=== PATIENT | male | born 1990 | race Caucasian/White ===

== ENCOUNTER 2017-06-24 13:44 | Emergency (ER) | payer BC ==
[~2017-06-24] VITALS: Ht 190.5 cm; Wt 72.7 kg
[~2017-06-24 13:44] MED LIST: VALP250 PO
[2017-06-24 14:00] VITALS: BP 139/90; PULSE 121; RESP 20; TEMP 100.3; O2SAT 99
[2017-06-24] MEDS ORDERED: SODIUM CHLOR 0.9% 1000 ML INJ 1,000 ML IV ONE (14:23)
--- NOTE | 2017-06-24 14:29 | PD ---
HPI Chief Complaint: Seizure Time Seen by Provider: 14:22 Travel History International Travel<30 days: No Contact w/Intl Traveler<30days: No Traveled to known affect area: No History of Present Illness HPI [id number] with a history of seizures presents to the emergency department via [facility] with seizures that occurred just prior to arrival. Says he had 2 seizures within 30 minutes. He says his last seizure was in 2011. He states compliance with his medications and follows neurology every 6 months. Says he missed his last appt in january. There were no witnesses. States his seizure are of grand mal nature and usually has a postictal period. He does not know why he had a seizure today. He thinks he bit his tongue but denies urinary incontinence. He says he drank 'a little' for New Year's but denies chronic or heavy alcohol use. Denies illicit drug use or any other ingestions. Patient states he has had a mild upper respiratory like infection and felt feverish the last 2 days. Denies shortness of breath or chest pain. He denies significant pain or headaches. Denies blurred vision or neck pain. PFSH Past Medical History Respiratory: Yes (spontaneous pneumothorax) Immunizations Current: Yes Seizures: Yes Social History Alcohol Use: No Tobacco Use: No Substance Use: No Allergies-Medications (Allergen,Severity, Reaction): Coded Allergies: No Known Allergies (Verified Allergy, Unknown, 06/24/17) Reported Meds & Prescriptions Reported Meds & Active Scripts Active Reported Depakote ER (Divalproex Sodium) 250 Mg Shobha 425 Mg PO HS Depakote ER (Divalproex Sodium) 500 Mg Shobha 500 Mg PO DAILY Review of Systems Except as stated in HPI: all other systems reviewed are Neg Physical Exam Narrative GENERAL: Well-nourished in no apparent distress SKIN: Focused skin assessment warm/dry. HEAD: Atraumatic. Normocephalic. No obvious contusions or abrasions. EYES: Pupils equal and round. No scleral icterus. No injection or drainage. EOMI ENT: No nasal bleeding or discharge. Mucous membranes pink and moist. Mildly erythematous posterior pharynx. NECK: Trachea midline. No JVD. No midline tenderness. no meningismus. CARDIOVASCULAR: Regular rate and rhythm. No murmur appreciated. RESPIRATORY: No accessory muscle use. Clear to auscultation. Breath sounds equal bilaterally. GASTROINTESTINAL: Abdomen soft, non-tender, nondistended. MUSCULOSKELETAL: No obvious deformities. No clubbing. No cyanosis. No edema. BACK: No CVA tenderness. No rash. No point tenderness on palpation of the spine. NEUROLOGICAL: Awake and alert. No obvious cranial nerve deficits. Motor grossly within normal limits. Normal speech. PSYCHIATRIC: Appropriate mood and affect; insight and judgment normal. Data Data Last Documented VS Vital Signs Date Time Temp Pulse Resp B/P (MAP) Pulse Ox O2 Delivery O2 Flow Rate FiO2 06/24/17 18:23 06/24/17 15:47 94 18 98 Room Air 06/24/17 14:00 100.3 Orders Orders Complete Blood Count With Diff (06/24/17 14:23) Electrocardiogram (06/24/17 ) Ct Brain W/O Iv Contrast(Rout) (06/24/17 ) Blood Glucose (06/24/17 14:23) Ecg Monitoring (06/24/17 14:23) Iv Access Insert/Monitor (06/24/17 14:23) Oximetry (06/24/17 14:23) Comprehensive Metabolic Panel (06/24/17 14:23) Sodium Chlor 0.9% 1000 Ml Inj (Ns 1000 M (06/24/17 14:23) Influenzae A/B Antigen (06/24/17 14:23) Chest, Single Ap (06/24/17 ) Valproic Acid (Depakene) (06/24/17 14:23) Lorazepam Inj (Ativan Inj) (06/24/17 15:30) Acetaminophen (Tylenol) (06/24/17 15:30) Valproate Inj (Depacon Inj) (06/24/17 16:30) Ed Discharge Order (06/24/17 16:54) Labs Laboratory Tests Test 06/24/17 14:37 06/24/17 16:19 Blood Urea Nitrogen 11 MG/DL Creatinine 1.05 MG/DL Random Glucose 102 MG/DL Total Protein 7.0 GM/DL Albumin 3.8 GM/DL Calcium Level 8.6 MG/DL Alkaline Phosphatase 67 U/L Aspartate Amino Transf (AST/SGOT) 20 U/L Alanine Aminotransferase (ALT/SGPT) 17 U/L Total Bilirubin 0.5 MG/DL Sodium Level 137 MEQ/L Potassium Level 3.8 MEQ/L Chloride Level 101 MEQ/L Carbon Dioxide Level 28.5 MEQ/L Anion Gap 8 MEQ/L Estimat Glomerular Filtration Rate 85 ML/MIN Valproic Acid (Depakene) Level 98 MCG/ML White Blood Count 6.2 TH/MM3 Red Blood Count 5.16 MIL/MM3 Hemoglobin 16.4 GM/DL Hematocrit 46.7 % Mean Corpuscular Volume 90.5 FL Mean Corpuscular Hemoglobin 31.7 PG Mean Corpuscular Hemoglobin Concent 35.0 % Red Cell Distribution Width 12.2 % Platelet Count 115 TH/MM3 Mean Platelet Volume 9.8 FL Neutrophils (%) (Auto) 71.3 % Lymphocytes (%) (Auto) 10.5 % Monocytes (%) (Auto) 17.8 % Eosinophils (%) (Auto) 0.0 % Basophils (%) (Auto) 0.4 % Neutrophils # (Auto) 4.4 TH/MM3 Lymphocytes # (Auto) 0.6 TH/MM3 Monocytes # (Auto) 1.1 TH/MM3 Eosinophils # (Auto) 0.0 TH/MM3 Basophils # (Auto) 0.0 TH/MM3 CBC Comment DIFF FINAL Differential Comment MDM Medical Decision Making Medical Screen Exam Complete: Yes Emergency Medical Condition: Yes Differential Diagnosis Breakthrough seizure, febrile seizure, noncompliance with medications, epilepsy Narrative Course [id number] with a history of seizures presents to the emergency department via [facility] with seizures that occurred just prior to arrival. Says he had 2 seizures within 30 minutes. He says his last seizure was in 2011. He states compliance with his medications and follows neurology every 6 months. Says he missed his last appt in january. There were no witnesses. States his seizure are of grand mal nature and usually has a postictal period. He does not know why he had a seizure today. He thinks he bit his tongue but denies urinary incontinence. He says he drank 'a little' for New Year's but denies chronic or heavy alcohol use. Denies illicit drug use or any other ingestions. Patient states he has had a mild upper respiratory like infection and felt feverish the last 2 days. Denies shortness of breath or chest pain. He denies significant pain or headaches. Denies blurred vision or neck pain. Vital signs stable. Chest x-ray without acute process. His exam findings unremarkable except for an abrasion to the anterior chest. Dr. Hernandez will be consulted regarding this patient. This patient has been stable for 6 years and patient reports 2 seizures within 30 minutes. Laboratory Tests Test 06/24/17 14:37 Blood Urea Nitrogen 11 MG/DL Creatinine 1.05 MG/DL Random Glucose 102 MG/DL Total Protein 7.0 GM/DL Albumin 3.8 GM/DL Calcium Level 8.6 MG/DL Alkaline Phosphatase 67 U/L Aspartate Amino Transf (AST/SGOT) 20 U/L Alanine Aminotransferase (ALT/SGPT) 17 U/L Total Bilirubin 0.5 MG/DL Sodium Level 137 MEQ/L Potassium Level 3.8 MEQ/L Chloride Level 101 MEQ/L Carbon Dioxide Level 28.5 MEQ/L Anion Gap 8 MEQ/L Estimat Glomerular Filtration Rate 85 ML/MIN Valproic Acid (Depakene) Level 98 MCG/ML Drug levels stable. I suspect the cause of his seizure was secondary to the Influenza infection. Dr. Shirley spoke with Dr. Hernandez, his neurologist and suggested a bolus of medication. Depakote 500mg administered. See Dr. Shirley's note as well regarding this patient and discussion with his neurologist. Patient will be discharged with strict instructions to return if symptoms worsen. Follow up with neurology within 2-3 days. Use tylenol or motrin for symptom relief and for fever control. Diagnosis Primary Impression: Breakthrough seizure Additional Impression: Influenza A Referrals: Becky Hernandez MD Additional Instructions: Follow-up with neurologist within 1-2 weeks. Use Tylenol or Motrin per package instructions for symptom relief. Take medications as prescribed. Follow up with your primary care physician within 2-3 days. If your symptoms persist or worsen, return to the emergency department. Disposition: 01 DISCHARGE HOME Condition: Stable Jesi Pichardo Jun 24, 2017 14:29
[2017-06-24 14:40] VITALS: O2SAT 98
[2017-06-24] MEDS ORDERED: DIVA250ER PO (14:43)
[2017-06-24] MEDS ORDERED: DEPA500T3 PO (14:43)
--- NOTE | 2017-06-24 14:57 | RADRPT ---
EXAM DATE/TIME: 06/24/2017 14:43 [facility] COMPARISON: No previous studies available for comparison. INDICATIONS : Seizures, abrasion on chest. 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 ENCOUNTER: Initial ACUITY: 1 day PAIN SCORE: 0/10 LOCATION: Bilateral chest FINDINGS: A single view of the chest demonstrates the lungs to be symmetrically aerated without evidence of mas s, infiltrate or effusion. The cardiomediastinal contours are unremarkable. Osseous structures are intact. CONCLUSION: No acute disease. Paulino Gonzáles MD FACR on June 24, 2017 at 14:55 Board Certified Radiologist. This report was verified electronically.
--- NOTE | 2017-06-24 15:16 | RADRPT ---
EXAM DATE/TIME: 06/24/2017 15:00 [facility] COMPARISON: No previous studies available for comparison. INDICATIONS : Seizures RADIATION DOSE: 38.02 CTDIvol (mGy) MEDICAL HISTORY : Seizures. SURGICAL HISTORY : None. ENCOUNTER: Initial ACUITY: 1 day PAIN SCALE: 2/10 LOCATION: cranial TECHNIQUE: Multiple contiguous axial images were obtained of the head. Using automated exposure control and adj ustment of the mA and/or kV according to patient size, radiation dose was kept as low as reasonably a chievable to obtain optimal diagnostic quality images. DICOM format image data is available electro nically for review and comparison. FINDINGS: CEREBRUM: The ventricles are normal for age. No evidence of midline shift, mass lesion, hemorrhage or acute in farction. No extra-axial fluid collections are seen. POSTERIOR FOSSA: The cerebellum and brainstem are intact. The 4th ventricle is midline. The cerebellopontine angle i s unremarkable. EXTRACRANIAL: The visualized portion of the orbits is intact. SKULL: The calvaria is intact. No evidence of skull fracture. CONCLUSION: Negative for an acute process. Paulino Gonzáles MD FACR on June 24, 2017 at 15:14 Board Certified Radiologist. This report was verified electronically.
[2017-06-24 15:28] LABS: ALBUMIN 3.8 GM/DL (3.4-5.0); AST (GOT) 20 U/L (15-37); BICARBONATE 28.5 MEQ/L (21.0-32.0); BLOOD UREA NITROGEN 11 MG/DL (7-18); CALCIUM 8.6 MG/DL (8.5-10.1); CHLORIDE 101 MEQ/L (98-107); CREATININE 1.05 MG/DL (0.60-1.30); GLOMERULAR FILTRATION RATE 85 ML/MIN (>89); GLUCOSE,RANDOM 102 MG/DL (74-106); SODIUM (NA) 137 MEQ/L (136-145)
[2017-06-24] MEDS ORDERED: ACETAMINOPHEN 325 MG TAB PO ONE (15:30)
[2017-06-24] MEDS ORDERED: LORazepam 2 MG/ML VIAL IV PUSH ONE (15:30)
[2017-06-24 15:31] LABS: ALKALINE PHOSPHATASE 67 U/L (45-117); ALT (GPT) 17 U/L (12-78); TOTAL BILIRUBIN ADULT 0.5 MG/DL (0.2-1.0)
[2017-06-24 15:47] VITALS: BP 123/85; PULSE 94; RESP 18; O2SAT 98
[2017-06-24] MEDS ORDERED: VALPROATE INJ 500 MG in SODIUM CHLORIDE 0.9% INJ 100 ML IV ONE (16:30)
[2017-06-24 16:42] LABS: AUTOMATED NEUTROPHIL # 4.4 TH/MM3 (1.8-7.7); BASOPHIL % 0.4 % (0.0-2.0); HEMATOCRIT 46.7 % (39.0-51.0); HEMOGLOBIN 16.4 GM/DL (13.0-17.0); LYMPH % 10.5 % (9.0-44.0); LYMPHOCYTE # 0.6 TH/MM3 (1.0-4.8); MEAN CELL VOLUME 90.5 FL (80.0-100.0); MEAN CORPUSCULAR HEMOGLOBIN 31.7 PG (27.0-34.0); MEAN PLATELET VOLUME 9.8 FL (7.0-11.0); MONO % 17.8 % (0.0-8.0); MONOCYTE # 1.1 TH/MM3 (0-0.9); NEUT % 71.3 % (16.0-70.0); PLATELET COUNT 115 TH/MM3 (150-450); RED BLOOD COUNT 5.16 MIL/MM3 (4.50-5.90); RED CELL DISTRIBUTION WIDTH 12.2 % (11.6-17.2); WHITE BLOOD COUNT 6.2 TH/MM3 (4.0-11.0)
--- NOTE | 2017-06-24 19:33 | PD ---
Data Data Last Documented VS Vital Signs Date Time Temp Pulse Resp B/P (MAP) Pulse Ox O2 Delivery O2 Flow Rate FiO2 06/24/17 18:23 06/24/17 15:47 94 18 98 Room Air 06/24/17 14:00 100.3 Orders Orders Complete Blood Count With Diff (06/24/17 14:23) Electrocardiogram (06/24/17 ) Ct Brain W/O Iv Contrast(Rout) (06/24/17 ) Blood Glucose (06/24/17 14:23) Ecg Monitoring (06/24/17 14:23) Iv Access Insert/Monitor (06/24/17 14:23) Oximetry (06/24/17 14:23) Comprehensive Metabolic Panel (06/24/17 14:23) Sodium Chlor 0.9% 1000 Ml Inj (Ns 1000 M (06/24/17 14:23) Influenzae A/B Antigen (06/24/17 14:23) Chest, Single Ap (06/24/17 ) Valproic Acid (Depakene) (06/24/17 14:23) Lorazepam Inj (Ativan Inj) (06/24/17 15:30) Acetaminophen (Tylenol) (06/24/17 15:30) Valproate Inj (Depacon Inj) (06/24/17 16:30) Ed Discharge Order (06/24/17 16:54) Labs Laboratory Tests Test 06/24/17 14:37 06/24/17 16:19 Blood Urea Nitrogen 11 MG/DL Creatinine 1.05 MG/DL Random Glucose 102 MG/DL Total Protein 7.0 GM/DL Albumin 3.8 GM/DL Calcium Level 8.6 MG/DL Alkaline Phosphatase 67 U/L Aspartate Amino Transf (AST/SGOT) 20 U/L Alanine Aminotransferase (ALT/SGPT) 17 U/L Total Bilirubin 0.5 MG/DL Sodium Level 137 MEQ/L Potassium Level 3.8 MEQ/L Chloride Level 101 MEQ/L Carbon Dioxide Level 28.5 MEQ/L Anion Gap 8 MEQ/L Estimat Glomerular Filtration Rate 85 ML/MIN Valproic Acid (Depakene) Level 98 MCG/ML White Blood Count 6.2 TH/MM3 Red Blood Count 5.16 MIL/MM3 Hemoglobin 16.4 GM/DL Hematocrit 46.7 % Mean Corpuscular Volume 90.5 FL Mean Corpuscular Hemoglobin 31.7 PG Mean Corpuscular Hemoglobin Concent 35.0 % Red Cell Distribution Width 12.2 % Platelet Count 115 TH/MM3 Mean Platelet Volume 9.8 FL Neutrophils (%) (Auto) 71.3 % Lymphocytes (%) (Auto) 10.5 % Monocytes (%) (Auto) 17.8 % Eosinophils (%) (Auto) 0.0 % Basophils (%) (Auto) 0.4 % Neutrophils # (Auto) 4.4 TH/MM3 Lymphocytes # (Auto) 0.6 TH/MM3 Monocytes # (Auto) 1.1 TH/MM3 Eosinophils # (Auto) 0.0 TH/MM3 Basophils # (Auto) 0.0 TH/MM3 CBC Comment DIFF FINAL Differential Comment MDM Supervised Visit with BIB: Yes Narrative Course The history, exam, and medical decision-making in the associated mid-level provider note were completed with my assistance. I reviewed and agree with the findings presented. I attest that I had a [id number] encounter with the patient on the same day, and personally performed and documented my assessment and findings in the medical record. *My assessment and Findings: The 26-year-old man with a history of seizures presents emergency Department with 2 seizures today. History of epilepsy but is been very stable on his Depakote. He's had no recent breakthrough seizures. He had 2 or 3 seizures this morning. He's had some cough cold symptoms for the past several days as he was returning from a trip. No fever here. Influenza was positive. He looks otherwise well. I called and spoke with Dr. Hernandez, patient's neurologist. Recommended an additional dose of Depakote here. Outpatient follow-up with him as planned. Supportive treatment for the influenza. Diagnosis Primary Impression: Breakthrough seizure Additional Impression: Influenza A Referrals: Becky Hernandez MD Patient Instructions: General Instructions, Influenza (ED), Epilepsy (ED) Departure Forms: Tests/Procedures Additional Instruction: Follow-up with neurologist within 1-2 weeks. Use Tylenol or Motrin per package instructions for symptom relief. Take medications as prescribed. Follow up with your primary care physician within 2-3 days. If your symptoms persist or worsen, return to the emergency department. Disposition: 01 DISCHARGE HOME Condition: Stable Jeremias Shirley MD Jun 24, 2017 19:33
--- NOTE | 2017-06-26 23:51 | EKG ---
Date Performed: 06/24/2017 Time Performed: 14:41:27 PTAGE: 26 years EKG: SINUS TACHYCARDIA POSSIBLE LEFT ATRIAL ENLARGEMENT POSSIBLE RIGHT VENTRICULAR CONDUCTION DE LAY ABNORMAL RHYTHM ECG PREVIOUS TRACING : 07/28/2010 21.26 DOCTOR: Eric Wu Interpretating Date/Time 06/26/2017 23:50:53
== END 2017-06-24 18:24 | disposition home or self-care (01) ==
LOC: NEPC 13:44
DX: J10.1 Influenza due to other identified influenza virus with other respiratory manifestations (principal); R56.9 Unspecified convulsions; R94.31 Abnormal electrocardiogram [ECG] [EKG]
CPT/HCPCS: 70450; 71045; 80053; 80164; 85025; 87804; 93005; 96361; 96365; 96375; 99285; J2060; J7030